=== PATIENT | female | born 1955 | race Caucasian/White ===

== ENCOUNTER 2018-01-11 01:01 | Inpatient (IN) | payer OTHER ==
--- NOTE | 2018-01-11 01:25 | PDOC ---
History of Present Illness <Kevin Muir - Last Filed: 01/11/18 03:51> - History of Present Illness Initial Comments: 62 year old female with PMH of HTN and recent cholecystectomy (3 weeks prior at [facility]) presenting with RUQ pain, nausea, and diaphoresis for the past 4 hours. States that she has been asymptomatic since her surgery and has not required pain medication. This pain today was sudden onset and she did not take any medications for it. Her dinner consisted of shrimp, crab, pasta, and pasta sauce. Denies recent EtOH or smoking. 01/11/18 02:23 <Aleksandr Browning - Last Filed: 01/11/18 04:13> - General Chief Complaint: Chest Pain Stated Complaint: CHEST PAIN Time Seen by Provider: 01/11/18 01:24 Past History <Kevin Muir - Last Filed: 01/11/18 03:51> - Past Medical History COPD: No HTN: Yes - Surgical History Abdominal Surgery: Yes (lt oopherectomy) Cholecystectomy: Yes (10/22/17) - Suicide/Smoking/Psychosocial Hx Smoking History: Current every day smoker Have you smoked in the past 12 months: Yes Number of Cigarettes Smoked Daily: 10 Information on smoking cessation initiated: No 'Breaking Loose' booklet given: 11/03/17 Hx Alcohol Use: No Drug/Substance Use Hx: No Substance Use Type: None <Aleksandr Browning - Last Filed: 01/11/18 04:13> - Past Medical History Allergies/Adverse Reactions: Allergies Allergy/AdvReac Type Severity Reaction Status Date / Time No Known Allergies Allergy Verified 11/03/17 18:24 Review of Systems - Review of Systems Constitutional: Yes: Diaphoresis. No: Chills, Fever HEENTM: No: Blurred Vision, Tearing Respiratory: No: Cough, Shortness of Breath Cardiac (ROS): No: Chest Pain, Edema, Irregular Heart Rate ABD/GI: Yes: Diarrhea, Nausea. No: Constipated, Vomiting : No: Burning, Dysuria, Discharge Musculoskeletal: No: Back Pain, Gout, Joint Pain Integumentary: No: Change in Color, Lesions, Lumps, Pallor Neurological: No: Headache, Numbness, Paresthesia Psychiatric: No: Anxiety, Depression Hematologic/Lymphatic: No: Anemia, Blood Clots, Easy Bleeding <NamUlimaryjane - Last Filed: 01/11/18 04:13> *Physical Exam - Vital Signs Last Vital Signs Temp Pulse Resp BP Pulse Ox 91 H 24 130/110 99 01/11/18 01:05 01/11/18 01:05 01/11/18 01:05 01/11/18 01:34 <Kevin Muir - Last Filed: 01/11/18 03:51> - Vital Signs Last Vital Signs Temp Pulse Resp BP Pulse Ox 91 H 24 130/110 01/11/18 01:05 01/11/18 01:05 01/11/18 01:05 - Physical Exam General Appearance: Yes: Nourished, Appropriately Dressed, Apparent Distress, Mild Distress HEENT: positive: EOMI, CINDY, Normal Voice Neck: positive: Trachea midline, Normal Thyroid, Supple. negative: Tender, Rigid Respiratory/Chest: positive: Lungs Clear, Normal Breath Sounds. negative: Chest Tender, Respiratory Distress, Accessory Muscle Use Cardiovascular: positive: Regular Rhythm, Regular Rate Gastrointestinal/Abdominal: positive: Normal Bowel Sounds, Tender (RUQ and eoigastric tenderness), Flat, Soft Musculoskeletal: positive: Normal Inspection. negative: CVA Tenderness Extremity: positive: Normal Capillary Refill, Normal Inspection, Normal Range of Motion, Pelvis Stable. negative: Tender Integumentary: positive: Normal Color, Dry, Warm Neurologic: positive: Fully Oriented, Alert, Normal Mood/Affect, Normal Response , Motor Strength 5/5 <Aleksandr Browning - Last Filed: 01/11/18 04:13> ED Treatment Course - LABORATORY CBC & Chemistry Diagram: 01/11/18 01:40 01/11/18 01:40 - ADDITIONAL ORDERS Additional order review: Laboratory Results 01/11/18 01/11/18 01/11/18 01:44 01:44 01:40 PT with INR 10.60 INR 0.94 Sodium 138 Potassium 3.9 Chloride 102 Carbon Dioxide 32 Anion Gap 4 L BUN 15 Creatinine 0.7 Creat Clearance w eGFR > 60 Random Glucose 116 H Calcium 9.5 Total Bilirubin 0.6 D AST 70 H ALT 313 H Alkaline Phosphatase 236 H Creatine Kinase 102 Troponin I < 0.02 Total Protein 7.1 Albumin 3.6 Total Amylase 31 Lipase 115 01/11/18 01:40 RBC 4.69 MCV 90.4 MCHC 33.2 RDW 13.0 MPV 10.0 Neutrophils % 68.7 Lymphocytes % 19.3 Monocytes % 8.4 Eosinophils % 3.1 Basophils % 0.5 - Medications Given in the ED: ED Medications Discontinued Medications Generic Name Dose Route Start Last Admin Trade Name Billie PRN Reason Stop Dose Admin Al Hydroxide/Mg Hydroxide 30 ml 01/11/18 01:46 01/11/18 03:03 Mylanta Oral Suspension - PO 01/11/18 01:47 30 ml ONCE ONE Administration Sodium Chloride 1,000 mls @ 1,000 mls/hr 01/11/18 01:37 01/11/18 01:50 Normal Saline - IV 01/11/18 02:36 1,000 mls/hr ASDIR STA Administration Famotidine 20 mg in 12 mls @ 144 mls/hr 01/11/18 01:46 01/11/18 03:03 Pepcid 20 Mg/12 Ml Push IVPUSH 01/11/18 01:50 144 mls/hr ONCE ONE Administration Morphine Sulfate 2 mg 01/11/18 01:37 01/11/18 01:50 Morphine Injection - IVPUSH 01/11/18 01:38 2 mg ONCE ONE Administration Morphine Sulfate 2 mg 01/11/18 03:07 01/11/18 03:20 Morphine Injection - IVPUSH 01/11/18 03:08 Not Given ONCE ONE Morphine Sulfate 4 mg 01/11/18 03:09 01/11/18 03:20 Morphine Injection - IVPUSH 01/11/18 03:10 4 mg ONCE ONE Administration <Kevin Muir - Last Filed: 01/11/18 03:51> - LABORATORY CBC & Chemistry Diagram: 01/11/18 01:40 01/11/18 01:40 <Aleksandr Browning - Last Filed: 01/11/18 04:13> Medical Decision Making - Medical Decision Making 01/11/18 03:51 EXAM: ABDOMEN US -LIMITED right upper quadrant and limited abdominal duplex HISTORY: Right upper quadrant pain status post cholecystectomy. COMPARISON: None. FINDINGS: Right upper quadrant ultrasound:The liver is enlarged and fatty, without mass or biliary duct dilation. The CBD is moderately dilated and [id number] millimeters in diameter. Right kidney measures 10.6centimeters in length and is unremarkable. The visualized aorta and IVC are normal. Pancreas is partially obscured, but appears normal. No free fluid. Abdominal duplex on the main portal vein demonstrates normal hepatopedal flow. IMPRESSION: Moderately dilated CBD could be due to postoperative stricture or nonvisualized distal CBD stone. Enlarged fatty liver. Read by: Nathan Hunter MD <Kevin Muir - Last Filed: 01/11/18 03:51> - Medical Decision Making 62 year old female presenting with RUQ abdominal pain 3 weeks after cholecystectomy concerning for post simon cholecystitis vs. retained CBD stone. Abd US demonstrating CBD dilation so likely the latter. Patient signed out to Dr. Mckay Wells and patient antibiosed with Zosyn, started on maintenance fluid, and made NPO. Eloyckmarty consult placed as patient will likely need ERCP. [facility] with pain controlled after a few doses of Motrin. 01/11/18 04:07 <Aleksandr Browning - Last Filed: 01/11/18 04:13> *DC/Admit/Observation/Transfer - Attestations Scribe Attestion: 01/11/18 03:52 Documentation prepared by Kevin Muir, acting as medical genetics director for Kavon Arredondo MD. <Kevin Muir - Last Filed: 01/11/18 03:51> - Discharge Dispostion Decision to Admit order: Yes <Aleksandr Browning - Last Filed: 01/11/18 04:13> Diagnosis at time of Disposition: Choledocholithiasis - Discharge Dispostion Disposition: HOME Condition at time of disposition: Stable
[2018-01-11] MEDS ORDERED: SODIUM CHLORIDE 1,000 ML IV STA (01:37)
[2018-01-11] MEDS ORDERED: morphine CARPU-JECT 2 MG/1 ML DISP.SYRIN IVPUSH ONE ×3 (01:37→20:45)
[2018-01-11] MEDS ORDERED: MAG HYDROX/AL HYDROX/SIMETH 30 ML UNIT-DOSE CUP PO ONE (01:46)
[2018-01-11] MEDS ORDERED: FAMOTIDINE IV 20 MG/12 ML VIAL IVPUSH ONE (01:46)
[2018-01-11 01:50] LABS: BASO % 0.5 % (0-2.0); EOS % 3.1 % (0-4.5); HEMATOCRIT 42.4 % (32.4-45.2); HEMOGLOBIN 14.1 GM/dL (10.7-15.3); LYMPH % 19.3 % (8-40); MCHC 33.2 g/dl (32.0-36.0); MEAN CELL VOLUME 90.4 fl (80-96); MONO % 8.4 % (3.8-10.2); NEUT % 68.7 % (42.8-82.8); PLATELET COUNT 307 K/MM3 (134-434); RBC 4.69 M/mm3 (3.60-5.2); WHITE BLOOD COUNT 13.2 K/mm3 (4.0-10.0)
[2018-01-11 02:09] LABS: INR 0.94 (0.82-1.09); PROTHROMBIN TIME (PATIENT) 10.6 SEC (9.7-13.0)
[2018-01-11 02:29] LABS: ALBUMIN 3.6 g/dl (3.4-5.0); ALK PHOS 236 U/L (45-117); AMYLASE 31 U/L (25-115); ANION GAP 4 (8-16); BILIRUBIN,TOTAL 0.6 mg/dL (0.2-1.0); BLOOD UREA NITROGEN 15 mg/dL (7-18); CALCIUM 9.5 mg/dL (8.5-10.1); CHLORIDE 102 mmol/L (98-107); CO2 32 mmol/L (21-32); CREATININE 0.7 mg/dL (0.55-1.02); GLUCOSE,RANDOM 116 mg/dL (74-106); LIPASE 115 U/L (73-393); POTASSIUM 3.9 mmol/L (3.5-5.1); SGOT/AST 70 U/L (15-37); SGPT/ALT 313 U/L (12-78); SODIUM 138 mmol/L (136-145); TOT PROT 7.1 g/dl (6.4-8.2)
[2018-01-11] MEDS ORDERED: morphine CARPU-JECT 4 MG/1 ML DISP.SYRIN IVPUSH ONE ×2 (03:09→04:40)
[2018-01-11] MEDS ORDERED: morphine SULFATE 4 MG/ML VIAL ONE (03:15)
--- NOTE | 2018-01-11 03:40 | PDOC ---
Attending Attestation - Resident Resident Name: NamAleksandr - ED Attending Attestation I have performed the following: I have examined & evaluated the patient, The case was reviewed & discussed with the resident, I agree w/resident's findings & plan, Exceptions are as noted - HPI HPI: 01/11/18 03:32 62 year old female with hx of HTN p/w RUQ pain since yesterday. The patient is s/p cholecystectomy 3 weeks ago at [place], reportedly unremarkable. Yesterday, developed severe RUQ pain with nausea. Denies vomiting. No fevers, chills. Stated that the pain is similar to RUQ pain to prior gallstone attacks. - Physicial Exam PE: 01/11/18 03:39 GENERAL: Awake, alert, and fully oriented, in no acute distress. HEAD: No signs of trauma EYES: PERRLA, EOMI, sclera anicteric, conjunctiva clear ENT: Auricles normal inspection, hearing grossly normal, nares patent NECK: Normal ROM, supple ABDOMEN: Soft, TTP RUQ, epigastric. EXTREMITIES: Normal range of motion, no edema. No clubbing or cyanosis. No cords, erythema, or tenderness - Medical Decision Making 01/11/18 03:40 Vital Signs Temp Pulse Resp BP Pulse Ox 91 H 24 130/110 99 01/11/18 01:05 01/11/18 01:05 01/11/18 01:05 01/11/18 01:34 Labs suggested that she has choledochlithiasis vs. cholangitis. Ultrasound pending. Labs, GI consult, and admit.
[2018-01-11] MEDS ORDERED: PIPERACILLIN/TAZOB 4.5 GM 4.5 GM in DEXTROSE 5%-WATER 100 ML IVPB ONE (04:02)
[2018-01-11] MEDS ORDERED: PIPERACILLIN/TAZOB 4.5 GM 4.5 GM/100 ML BAG IVPB ONE (04:34)
[2018-01-11] MEDS: SODIUM CHLORIDE 1,000 ML IV SCH ×2 (04:54→12:57)
[2018-01-11] MEDS: morphine SULFATE 4 MG/ML VIAL IM PRN ×3 (07:45→20:04)
--- NOTE | 2018-01-11 09:38 | CON.GI ---
Consult Consult Specialty:: GI: Dr. Lynch for Dr. Solis Referred by:: Dr. Mccabe Reason for Consultation:: Abdominal pain, abnormal liver chemistries - History of Present Illness Chief Complaint: Abdominal pain History of Present Illness: 62F admitted for evaluation of progressive epigastric pain and nausea. This started last night and worsened in intensity prompting her ER visit. She was noted to have elevated transaminases / ALP and a CBD of 1.5cm. She denies fevers/chills. She explains that she underwent ERCP 11/02 at [facility] secondary to a similar episode. She explains that they "found gravel" and while they advised having a cholecystectomy the next day, she opted to wait until earlier this month to have it performed. 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 [employer] Place of : [facility] History of Recent Travel: No Home Medications - Allergies Allergies/Adverse Reactions: Allergies Allergy/AdvReac Type Severity Reaction Status Date / Time No Known Allergies Allergy Verified 11/03/17 18:24 - Home Medications Home Medications: Ambulatory Orders Metoprolol Tartrate 25 mg PO DAILY 01/11/18 Olmesartan/Hydrochlorothiazide [Benicar Hct 20-12.5MG Tab] 1 tab PO DAILY Family Disease History - Family Disease History Family Disease History: Other: Father ( 64: [place]), Mother (: 71: ESRD on HD), Brother (2, Healthy), Sister (3, healthy), Son (2, healthy) Review of Systems - Review of Systems Constitutional: denies: Lethargy Cardiovascular: denies: Chest Pain Respiratory: denies: Cough, SOB Gastrointestinal: reports: Nausea. denies: Diarrhea, Dysphagia, Vomiting, Vomiting Blood Physical Exam-GI Vital Signs: Vital Signs Temperature 99.3 F 01/11/18 06:30 Pulse Rate 70 01/11/18 06:30 Respiratory Rate 20 01/11/18 06:30 Blood Pressure 131/72 01/11/18 06:30 O2 Sat by Pulse Oximetry (%) 99 01/11/18 05:52 Constitutional: Yes: Calm Eyes: No: Sclera Icterus Cardiovascular: Yes: Regular Rate and Rhythm. No: Murmur Respiratory: Yes: CTA Bilaterally Gastrointestinal Inspection: Yes: Scars (healed trochar scar in upper abdomen and periumbilical scar). No: Distention ...Auscultate: Yes: Normoactive Bowel Sounds ...Palpate: Yes: Tenderness (TTP epigastrium) ...Percussion: No: Tympanitic Edema: No (No LE edema) Neurological: Yes: Alert, Oriented Labs: CBC, BMP 01/11/18 01:40 01/11/18 01:40 INR, PTT INR 0.94 (0.82-1.09) 01/11/18 01:44 Hepatic Panel Total Bilirubin 0.6 mg/dL (0.2-1.0) D 01/11/18 01:40 AST 70 U/L (15-37) H 01/11/18 01:40 ALT 313 U/L (12-78) H 01/11/18 01:40 Alkaline Phosphatase 236 U/L (45-117) H 01/11/18 01:40 Albumin 3.6 g/dl (3.4-5.0) 01/11/18 01:40 Imaging - Results Ultrasound: Report Reviewed Problem List - Problems (1) Abnormal liver enzymes Assessment/Plan: Given clinical picture, retained CBD stone would have to be considered higher in the Ddx. I explained this to Ms. Magana. While MRCP would be a good startind test, Ms. Magana explains that they tried that in 11/02 at [facility] prior to her surgery and gave her sedation however she lasted only 20 seconds in the machine due to panic attack. I discussed ERCP, which by description, she has performed previously, for diagnostic and therapeutic purposes. We discussed potential risks of the procedure like but not limited to bleeding, perforation requiring surgery to repair, infection, sedation medication effects, pancreatitis (occurring 5-10% of the cases) all of which could be potentially life threatening. She has agreed to the procedure. For now: Ordered CBC, CMP and type and screen for this AM NPO except meds IV hydration per PMD Timing of procedure to be determined by lab work and clinical status Code(s): R74.8 - ABNORMAL LEVELS OF OTHER SERUM ENZYMES
[2018-01-11] MEDS ORDERED: PIPERACILLIN/TAZOB 3.375 GM 3.375 GM in DEXTROSE 5%-WATER - 50 ML IVPB ONE (10:00)
--- NOTE | 2018-01-11 10:11 | EKG ---
Test Reason : Blood Pressure : / mmHG Vent. Rate : 091 BPM Atrial Rate : 091 BPM P-R Int : 128 ms QRS Dur : 092 ms QT Int : 382 ms P-R-T Axes : 060 054 046 degrees QTc Int : 469 ms NORMAL SINUS RHYTHM NORMAL ECG WHEN COMPARED WITH ECG OF 03-NOV-2017 18:08, NO SIGNIFICANT CHANGE WAS FOUND Confirmed by RAJENDRA POLLACK MD ([id number]) on 01/11/2018 10:11:28 AM Referred By: Confirmed By:RAJENDRA POLLACK MD
[2018-01-11] MEDS ORDERED: DEXTROSE 5%-WATER - 50 ML IVPB ONE ×2 (10:21→17:16)
[2018-01-11] MEDS ORDERED: PIPERACILLIN/TAZOBACTAM 3.375 GM VIAL IVPB ONE ×2 (10:21→17:16)
[2018-01-11] MEDS: PIPERACILLIN/TAZOB 3.375 GM 3.375 GM in DEXTROSE 5%-WATER - 50 ML IVPB SCH ×2 (10:26→17:18)
[2018-01-11] MEDS: METOPROLOL TARTRATE 25 MG TABLET (FP) PO SCH ×2 (10:26→21:22)
[2018-01-11 10:29] LABS: BASO % 0.5 % (0-2.0); EOS % 1.8 % (0-4.5); HEMATOCRIT 41.5 % (32.4-45.2); HEMOGLOBIN 13.5 GM/dL (10.7-15.3); LYMPH % 17.2 % (8-40); MCH 29.9 pg (25.7-33.7); MCHC 32.6 g/dl (32.0-36.0); MEAN CELL VOLUME 91.8 fl (80-96); MEAN PLT VOLUME 9.7 fl (7.5-11.1); MONO % 9.3 % (3.8-10.2); NEUT % 71.2 % (42.8-82.8); PLATELET COUNT 298 K/MM3 (134-434); RBC 4.52 M/mm3 (3.60-5.2); RDW 13.2 % (11.6-15.6); WHITE BLOOD COUNT 14.9 K/mm3 (4.0-10.0)
[2018-01-11 10:57] LABS: ALBUMIN 3.3 g/dl (3.4-5.0); ANION GAP 6 (8-16); BLOOD UREA NITROGEN 13 mg/dL (7-18); CALCIUM 8.8 mg/dL (8.5-10.1); CHLORIDE 104 mmol/L (98-107); CO2 32 mmol/L (21-32); GLUCOSE,RANDOM 91 mg/dL (74-106); POTASSIUM 4.3 mmol/L (3.5-5.1); SODIUM 142 mmol/L (136-145)
[2018-01-11 11:01] LABS: ALK PHOS 194 U/L (45-117); BILIRUBIN,TOTAL 0.7 mg/dL (0.2-1.0); CREATININE 0.8 mg/dL (0.55-1.02); SGOT/AST 51 U/L (15-37); SGPT/ALT 257 U/L (12-78); TOT PROT 6.7 g/dl (6.4-8.2)
--- NOTE | 2018-01-11 11:34 | HP ---
Admitting History and Physical - Primary Care Physician PCP: Mckay Mccabe - Admission Chief Complaint: stomach pain History of Present Illness: Pt is s/p cholecystectomy 3 weeks ago at [facility], developed epigastric pain yesterday, associated with nausea, not better with Nexium and Rolaids, came to ER last night as pain got worse. IN ER she was noticed to have elevated LFT, RUQ /epigastric pain. 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 [employer] History of Recent Travel: No Home Medications - Allergies Allergies/Adverse Reactions: Allergies Allergy/AdvReac Type Severity Reaction Status Date / Time No Known Allergies Allergy Verified 11/03/17 18:24 - Home Medications Home Medications: Ambulatory Orders Metoprolol Tartrate 25 mg PO DAILY 01/11/18 Olmesartan/Hydrochlorothiazide [Benicar Hct 20-12.5MG Tab] 1 tab PO DAILY Family Disease History - Family Disease History Family Disease History: Other: Father ( 64: [place]), Mother (: 71: ESRD on HD), Brother (2, Healthy), Sister (3, healthy), Son (2, healthy) Review of Systems - Review of Systems Constitutional: denies: Chills, Fever Eyes: denies: Blurred Vision, Recent Change in Vision HENT: denies: Difficult Swallowing, Ear Discharge, Ear Pain, Nasal Congestion, Throat Pain Neck: denies: Stiffness, Tenderness Cardiovascular: reports: Shortness of Breath. denies: Chest Pain, Edema, Palpitations Respiratory: denies: Cough, SOB, Wheezing Gastrointestinal: reports: Abdominal Pain. denies: Diarrhea, Nausea, Vomiting Genitourinary: denies: Burning, Discharge Musculoskeletal: denies: Back Pain, Extremity Pain Integumentary: denies: Bruising, Eczema, Rash Neurological: denies: Change in LOC, Change in Speech, Confusion, Numbness, Weakness Endocrine: denies: Excessive Sweating, Intolerance to Cold Hematology/Lymphatic: denies: Easily Bruised, Excessive Bleeding Psychiatric: denies: Anxiety, Depression Physical Examination Vital Signs: Vital Signs Temperature 97 F L 01/11/18 10:00 Pulse Rate 76 01/11/18 10:00 Respiratory Rate 20 01/11/18 10:00 Blood Pressure 138/58 01/11/18 10:00 O2 Sat by Pulse Oximetry (%) 99 01/11/18 05:52 Constitutional: Yes: No Distress, Calm Eyes: Yes: Conjunctiva Clear, EOM Intact HENT: Yes: Normocephalic. No: Rhinnorhea Neck: Yes: Trachea Midline. No: Lymphadenopathy Cardiovascular: Yes: Regular Rate and Rhythm, S1, S2 Respiratory: Yes: Regular, CTA Bilaterally. No: Rales Gastrointestinal: Yes: Normal Bowel Sounds, Soft, Tenderness, Epigastrium. No: Tenderness, Rebound ...Rectal Exam: Yes: Deferred Renal/: No: CVA Tenderness - Left, CVA Tenderness - Right Breast(s): Yes: Other (deferred) Musculoskeletal: No: Back Pain, Joint Swelling Edema: No Neurological: Yes: Alert, Oriented, Other (symmetric motor and sensory examination in UE/ LE/ face.) Psychiatric: Yes: Alert, Oriented Labs: CBC, BMP 01/11/18 10:00 01/11/18 10:00 Imaging - Results Chest X-ray: Report Reviewed Ultrasound: Report Reviewed Problem List - Problems (1) Choledocholithiasis Code(s): K80.50 - CALCULUS OF BILE DUCT W/O CHOLANGITIS OR CHOLECYST W/O OBST (2) Abnormal liver enzymes Code(s): R74.8 - ABNORMAL LEVELS OF OTHER SERUM ENZYMES (3) HTN (hypertension) Code(s): I10 - ESSENTIAL (PRIMARY) HYPERTENSION (4) Hx laparoscopic cholecystectomy Code(s): Z90.49 - ACQUIRED ABSENCE OF OTHER SPECIFIED PARTS OF DIGESTIVE TRACT Assessment/Plan NPO, IVF, IV abtx Nicotine patch GI consult, case was d/w Dr. Avi Bowens AM labs, case was d/w pt's nurse
[2018-01-11] MEDS: NICOTINE 14 MG/24 HOURS TOPICAL PATCH TD SCH (13:03)
[2018-01-11 17:37] LABS: BASO % 0.8 % (0-2.0); HEMATOCRIT 39.6 % (32.4-45.2); HEMOGLOBIN 13.2 GM/dL (10.7-15.3); LYMPH % 17.2 % (8-40); MCH 30.2 pg (25.7-33.7); MCHC 33.4 g/dl (32.0-36.0); MEAN CELL VOLUME 90.4 fl (80-96); MEAN PLT VOLUME 9.6 fl (7.5-11.1); PLATELET COUNT 275 K/MM3 (134-434); RBC 4.39 M/mm3 (3.60-5.2); RDW 12.8 % (11.6-15.6)
[2018-01-12] MEDS ORDERED: PIPERACILLIN/TAZOBACTAM 3.375 GM VIAL IVPB ONE ×3 (01:14→17:59)
[2018-01-12] MEDS ORDERED: DEXTROSE 5%-WATER - 50 ML IVPB ONE ×3 (01:15→17:59)
[2018-01-12] MEDS: morphine SULFATE 4 MG/ML VIAL IM PRN ×2 (01:27→06:47)
[2018-01-12] MEDS: SODIUM CHLORIDE 1,000 ML IV SCH ×3 (01:30→11:45)
[2018-01-12] MEDS: PIPERACILLIN/TAZOB 3.375 GM 3.375 GM in DEXTROSE 5%-WATER - 50 ML IVPB SCH ×3 (01:30→18:13)
[2018-01-12 07:45] LABS: HEMATOCRIT 38.8 % (32.4-45.2); MCH 30.4 pg (25.7-33.7); MCHC 33.4 g/dl (32.0-36.0); MEAN CELL VOLUME 91.1 fl (80-96); MEAN PLT VOLUME 10.1 fl (7.5-11.1); PLATELET COUNT 263 K/MM3 (134-434); RBC 4.26 M/mm3 (3.60-5.2); RDW 13.2 % (11.6-15.6); WHITE BLOOD COUNT 12.6 K/mm3 (4.0-10.0)
[2018-01-12 08:01] LABS: ALBUMIN 3.1 g/dl (3.4-5.0); ANION GAP 6 (8-16); BLOOD UREA NITROGEN 12 mg/dL (7-18); CALCIUM 8.2 mg/dL (8.5-10.1); CHLORIDE 107 mmol/L (98-107); CO2 29 mmol/L (21-32); GLUCOSE,RANDOM 99 mg/dL (74-106); SODIUM 142 mmol/L (136-145)
[2018-01-12 08:05] LABS: ALK PHOS 168 U/L (45-117); BILIRUBIN,TOTAL 0.8 mg/dL (0.2-1.0); CREATININE 0.8 mg/dL (0.55-1.02); SGOT/AST 33 U/L (15-37); SGPT/ALT 179 U/L (12-78); TOT PROT 6.2 g/dl (6.4-8.2)
[2018-01-12] MEDS ORDERED: PT OWN MED DRAWER 7, Y5N ONE (08:52)
[2018-01-12] MEDS: METOPROLOL TARTRATE 25 MG TABLET (FP) PO SCH ×2 (09:00→21:35)
[2018-01-12] MEDS: NICOTINE 14 MG/24 HOURS TOPICAL PATCH TD SCH (09:00)
[2018-01-12] MEDS ORDERED: GLYCOPYRROLATE 0.2 MG/1 ML VIAL ONE ×3 (09:13)
[2018-01-12] MEDS ORDERED: ROCURONIUM BROMIDE 50 MG/5 ML VIAL ONE (09:13)
[2018-01-12] MEDS ORDERED: PROPOFOL 20 ML ONE (09:13)
[2018-01-12] MEDS ORDERED: LIDOCAINE HCL/PF 2% SDV 5ML VIAL ONE (09:14)
[2018-01-12] MEDS ORDERED: NEOSTIGMINE METHYLSULFATE 0.5 MG/ML - 10 ML MDV ONE (09:14)
[2018-01-12] MEDS ORDERED: SUCCINYLCHOLINE CHLORIDE 200 MG/10 ML VIAL ONE (09:14)
[2018-01-12] MEDS ORDERED: PROMETHAZINE HCL 25 MG/1 ML VIAL IVPUSH PRN (09:24)
[2018-01-12] MEDS ORDERED: ONDANSETRON 4 MG/2 ML VIAL IVPUSH PRN (09:24)
[2018-01-12] MEDS ORDERED: LACTATED RINGERS SOLUTION 1,000 ML IV SCH (09:30)
[2018-01-12] MEDS ORDERED: ETOMIDATE 20 MG/10 ML AMPUL IVPUSH ONE (09:40)
[2018-01-12] MEDS ORDERED: ONDANSETRON 4 MG/2 ML VIAL ONE (09:40)
[2018-01-12] MEDS ORDERED: DEXAMETHASONE SOD PHOSPHATE 10 MG/1 ML VIAL ONE (09:40)
[2018-01-12] MEDS ORDERED: INDOMETHACIN 50 MG RECTAL SUPPOSITORY PR ONE (09:55)
[2018-01-12] MEDS ORDERED: GLUCAGON 1 MG KIT ONE (10:01)
[2018-01-12] MEDS ORDERED: morphine SULFATE 4 MG/ML VIAL IM PRN (10:55)
--- NOTE | 2018-01-12 12:35 | PN ---
Progress Note, Physician History of Present Illness: Pt w/o SOB, CP, palpitations, abd pain, N, V. Pt is s/p ERCP, eating now. - Current Medication List Current Medications: Active Medications Sodium Chloride (Normal Saline -) 1,000 mls @ 125 mls/hr IV ASDIR MAYURI Last Admin: 01/12/18 11:45 Dose: 0 mls Piperacillin Sod/Tazobactam (Sod 3.375 gm/ Dextrose) 50 mls @ 100 mls/hr IVPB Q8H-IV MAYURI; Protocol Metoprolol Tartrate (Lopressor -) 25 mg PO BID MAYURI Morphine Sulfate (Morphine Sulfate) 4 mg IM Q4H PRN PRN Reason: PAIN LEVEL 4 - 6 Nicotine (Nicoderm Patch -) 14 mg TD DAILY MAYURI - Objective Vital Signs: Vital Signs Temperature 98.5 F 01/12/18 11:45 Pulse Rate 65 01/12/18 11:45 Respiratory Rate 18 01/12/18 11:45 Blood Pressure 130/63 01/12/18 11:45 O2 Sat by Pulse Oximetry (%) 96 01/12/18 11:45 Constitutional: Yes: No Distress, Calm Cardiovascular: Yes: Regular Rate and Rhythm, S1, S2 Respiratory: Yes: Regular, CTA Bilaterally. No: Rales Gastrointestinal: Yes: Normal Bowel Sounds, Soft. No: Tenderness Edema: No Neurological: Yes: Alert, Oriented Labs: CBC, BMP 01/12/18 07:00 01/12/18 07:00 INR, PTT INR 0.94 (0.82-1.09) 01/11/18 01:44 Problem List - Problems (1) Choledocholithiasis Code(s): K80.50 - CALCULUS OF BILE DUCT W/O CHOLANGITIS OR CHOLECYST W/O OBST (2) Abnormal liver enzymes Code(s): R74.8 - ABNORMAL LEVELS OF OTHER SERUM ENZYMES (3) HTN (hypertension) Code(s): I10 - ESSENTIAL (PRIMARY) HYPERTENSION (4) Hx laparoscopic cholecystectomy Code(s): Z90.49 - ACQUIRED ABSENCE OF OTHER SPECIFIED PARTS OF DIGESTIVE TRACT Assessment/Plan s/p ERCP IVF- to be DC'ed if tolerates PO IV abtx Nicotine patch GI consult and f/u appreciated AM labs, Case was d/w pt's nurse
[2018-01-13] MEDS ORDERED: PIPERACILLIN/TAZOBACTAM 3.375 GM VIAL IVPB ONE ×2 (00:59→10:10)
[2018-01-13] MEDS ORDERED: DEXTROSE 5%-WATER - 50 ML IVPB ONE ×2 (01:00→10:10)
[2018-01-13] MEDS: PIPERACILLIN/TAZOB 3.375 GM 3.375 GM in DEXTROSE 5%-WATER - 50 ML IVPB SCH ×3 (01:43→17:50)
[2018-01-13] MEDS: SODIUM CHLORIDE 1,000 ML IV SCH ×2 (01:45→12:07)
[2018-01-13 08:30] LABS: HEMATOCRIT 38.7 % (32.4-45.2); HEMOGLOBIN 12.7 GM/dL (10.7-15.3); MCH 30.1 pg (25.7-33.7); MCHC 32.7 g/dl (32.0-36.0); MEAN PLT VOLUME 10.3 fl (7.5-11.1); PLATELET COUNT 275 K/MM3 (134-434); RBC 4.21 M/mm3 (3.60-5.2); RDW 13.2 % (11.6-15.6); WHITE BLOOD COUNT 15.7 K/mm3 (4.0-10.0)
[2018-01-13 08:48] LABS: ANION GAP 3 (8-16); CALCIUM 8.5 mg/dL (8.5-10.1); CHLORIDE 108 mmol/L (98-107); CO2 30 mmol/L (21-32); POTASSIUM 4.5 mmol/L (3.5-5.1); SODIUM 141 mmol/L (136-145)
[2018-01-13 08:58] LABS: ALBUMIN 2.8 g/dl (3.4-5.0); ALK PHOS 163 U/L (45-117); BILIRUBIN,TOTAL 0.6 mg/dL (0.2-1.0); BLOOD UREA NITROGEN 14 mg/dL (7-18); CREATININE 0.7 mg/dL (0.55-1.02); GLUCOSE,RANDOM 124 mg/dL (74-106); SGOT/AST 41 U/L (15-37); SGPT/ALT 153 U/L (12-78); TOT PROT 5.8 g/dl (6.4-8.2)
--- NOTE | 2018-01-13 09:15 | PN ---
Progress Note (short form) - Note Progress Note: Anesthesiology Post-op 62 y.o. woman POD#1 s/p ERCP with sphincterotomy under GA. Pt. is awake and alert in bed. She c/o some gas but otherwise has no complaints. Denies sore throat or n/v. VSS. 62 y.o. woman with stable post-operative course s/p ERCP. Continue post-op management as per primary team.
--- NOTE | 2018-01-13 09:37 | PN ---
Progress Note, Physician History of Present Illness: Pt w/o SOB, CP, palpitations, abd pain, N, V. Pt is s/p ERCP, eating now. - Current Medication List Current Medications: Active Medications Sodium Chloride (Normal Saline -) 1,000 mls @ 125 mls/hr IV ASDIR MAYURI Last Admin: 01/13/18 01:45 Dose: 125 mls/hr Piperacillin Sod/Tazobactam (Sod 3.375 gm/ Dextrose) 50 mls @ 100 mls/hr IVPB Q8H-IV MAYURI; Protocol Last Admin: 01/13/18 01:43 Dose: 100 mls/hr Metoprolol Tartrate (Lopressor -) 25 mg PO BID MAYURI Last Admin: 01/12/18 21:35 Dose: 25 mg Morphine Sulfate (Morphine Sulfate) 4 mg IM Q4H PRN PRN Reason: PAIN LEVEL 4 - 6 Nicotine (Nicoderm Patch -) 14 mg TD DAILY MAYURI - Objective Vital Signs: Vital Signs Temperature 97.6 F 01/13/18 06:00 Pulse Rate 61 01/13/18 06:00 Respiratory Rate 20 01/13/18 06:00 Blood Pressure 134/66 01/13/18 06:00 O2 Sat by Pulse Oximetry (%) 96 01/12/18 21:00 Constitutional: Yes: No Distress, Calm Cardiovascular: Yes: Regular Rate and Rhythm, S1, S2 Respiratory: Yes: Regular, CTA Bilaterally. No: Rales Gastrointestinal: Yes: Normal Bowel Sounds, Soft, Tenderness, Epigastrium ( minimal) Edema: No Neurological: Yes: Alert, Oriented Labs: CBC, BMP 01/13/18 06:43 01/13/18 06:43 INR, PTT INR 0.94 (0.82-1.09) 01/11/18 01:44 Problem List - Problems (1) Choledocholithiasis Code(s): K80.50 - CALCULUS OF BILE DUCT W/O CHOLANGITIS OR CHOLECYST W/O OBST (2) Abnormal liver enzymes Code(s): R74.8 - ABNORMAL LEVELS OF OTHER SERUM ENZYMES (3) HTN (hypertension) Code(s): I10 - ESSENTIAL (PRIMARY) HYPERTENSION (4) Hx laparoscopic cholecystectomy Code(s): Z90.49 - ACQUIRED ABSENCE OF OTHER SPECIFIED PARTS OF DIGESTIVE TRACT (5) Leukocytosis Assessment/Plan: to f/u with GI. Pt on abtx Code(s): D72.829 - ELEVATED WHITE BLOOD CELL COUNT, UNSPECIFIED Assessment/Plan s/p ERCP; to f/u report. IVF- to be DC'ed if tolerates PO IV abtx Nicotine patch GI consult and f/u appreciated; to f/u regarding WBC trending up. Findings were reviewed with pt; all questions were answered. AM labs, Case was d/w pt's nurse
[2018-01-13] MEDS ORDERED: NICOTINE 14 MG/24 HOURS TOPICAL PATCH TD SCH (10:00)
[2018-01-13] MEDS: METOPROLOL TARTRATE 25 MG TABLET (FP) PO SCH (10:13)
[2018-01-13 12:18] LABS: AMYLASE 28 U/L (25-115); LIPASE 112 U/L (73-393)
[2018-01-13 13:30] VITALS: BMI 35.6
[2018-01-13 15:32] VITALS: BP 155/84; PULSE 65; TEMP 98.6
--- NOTE | 2018-01-13 16:12 | PN ---
GI Progress Note Subjective: GI Note: Pain and fever free. Tolerating solids. Slightly elevated WBC reflects the sphincterotomy and sweeping of the duct. Wants to go home. LFTs are normalizing. I discussed the case with Dr Mccabe and informed him that Colette probably passed a stone on her own but now hs a sphincerotomy should any residual gravel need to pass. We have mutually agreed that she can be discharged. I have advised Miralax TID to relieve her narcotic induced constipation - Objective Vital Signs: Vital Signs Temperature 98.6 F 01/13/18 14:15 Pulse Rate 65 01/13/18 14:15 Respiratory Rate 20 01/13/18 14:15 Blood Pressure 155/84 01/13/18 14:15 O2 Sat by Pulse Oximetry (%) 96 01/13/18 09:00 Laboratory Tests 01/11/18 01/11/18 01/13/18 01:40 10:00 06:43 Total Bilirubin 0.6 D 0.6 D AST 70 H 51 H 41 H ALT 313 H 257 H 153 H Alkaline Phosphatase 236 H 194 H 163 H Total Amylase 28 Lipase 112 Constitutional: Calm ...Auscultate: Yes: Normoactive Bowel Sounds ...Palpate: Yes: Soft, Other (nontender) Labs: CBC, BMP 01/13/18 06:43 01/13/18 06:43 INR, PTT INR 0.94 (0.82-1.09) 01/11/18 01:44 Problem List - Problems (1) Choledocholithiasis Assessment/Plan: Resolved choledocholithiasis. Can discharge on Levaquin. Instructed to take Miralax TID until her bowels move. Code(s): K80.50 - CALCULUS OF BILE DUCT W/O CHOLANGITIS OR CHOLECYST W/O OBST
--- NOTE | 2018-01-13 17:03 | PN ---
Progress Note (short form) - Note Progress Note: Pt's case was reviewed with Dr. Solis, including ERCP findings; elevations in WBC is considered normal reaction secondary to ERCP; pt can be DC'ed home on Levaquin and Miralax (TID until BM). Pt to come to see me in f/u next week. Above recommendations were reviewed with pt.; all questions were answered. Time spent for coordinating pt's discharge: over 50 minutes. Problem List - Problems (1) Choledocholithiasis Code(s): K80.50 - CALCULUS OF BILE DUCT W/O CHOLANGITIS OR CHOLECYST W/O OBST (2) Abnormal liver enzymes Code(s): R74.8 - ABNORMAL LEVELS OF OTHER SERUM ENZYMES (3) HTN (hypertension) Code(s): I10 - ESSENTIAL (PRIMARY) HYPERTENSION (4) Hx laparoscopic cholecystectomy Code(s): Z90.49 - ACQUIRED ABSENCE OF OTHER SPECIFIED PARTS OF DIGESTIVE TRACT (5) Leukocytosis Code(s): D72.829 - ELEVATED WHITE BLOOD CELL COUNT, UNSPECIFIED
== END 2018-01-13 18:44 | disposition home or self-care (01) | DRG 446 ==
LOC: JER 01:01 → JERBED 04:13 → J8W 06:41
PROVIDERS: ADMIT Specialist; ATTEND Specialist
PROC: BF10YZZ Fluoroscopy of Bile Ducts using Other Contrast (ICD-10-PCS; 2018-01-12)
PROC: 0F798ZZ Dilation of Common Bile Duct, Via Natural or Artificial Opening Endoscopic (ICD-10-PCS; principal; 2018-01-12 09:30)
DX: K80.50 Calculus of bile duct without cholangitis or cholecystitis without obstruction (principal); R74.8 Abnormal levels of other serum enzymes; I10 Essential (primary) hypertension; F17.210 Nicotine dependence, cigarettes, uncomplicated; D72.829 Elevated white blood cell count, unspecified; R10.11 Right upper quadrant pain
CPT/HCPCS: 36415; 71045-TC-FY; 76000-TC-FY; 76705-TC; 80053; 82150; 82550; 83690; 84484; 85025; 85027; 85610; 86850; 86900; 86901; 93005; 93010; 94760; 99283-25; J1100; J7030

== ENCOUNTER 2018-03-06 18:07 | Emergency (ER) | payer OTHER ==
[2018-03-06 19:24] VITALS: BP 142/98; PULSE 92; TEMP 98.6; BMI 26.5
--- NOTE | 2018-03-06 19:34 | PDOC ---
Rapid Medical Evaluation Chief Complaint: Pain, Acute Time Seen by Provider: 03/06/18 19:20 Medical Evaluation: Allergies Allergy/AdvReac Type Severity Reaction Status Date / Time No Known Allergies Allergy Verified 02/26/18 13:22 03/06/18 19:20 I have performed a [id number] evaluation of this patient. The patient presents with a chief complaint of: epigastric pain. December 19, 2017: lap simon /same day surgery @ [facility] by Dr. Kalina Basurto January 15: Dr. Hui did ERCP/Pt states they did not find anything. ?CBD stone Pertinent Physical exam findings: epigastric pain denies n/v I have ordered the following: cbc/cmp/lipase, US limited The patient will proceed to the ED for further evaluation. Discharge Disposition - Discharge Dispostion Last Admission D/C Date: 03/02/18 - Referrals Referrals: Mckya Mccabe MD [Primary Care Provider] - - Patient Instructions - Post Discharge Activity
[2018-03-06] MEDS ORDERED: SODIUM CHLORIDE 500 ML IV STA (19:41)
--- NOTE | 2018-03-06 19:41 | PDOC ---
History of Present Illness - General History Source: Patient Exam Limitations: No Limitations - History of Present Illness Initial Comments: 03/06/18 20:44 The patient is a 63 year old female, with a significant past medical history of HTN, who presents to the emergency department with, 1 week of worsening mid- epigastric pain. As per patient, she has an ERCP with stent surgery a week ago and stayed in the hospital for 4 days. She describes her pain as a worsening, intermittent, positional, nonradiating pain lasting 15-20 seconds. She called her GI doctor, Dr. Becerra service who advised her to report to the ED for further evaluation. She denies recent fevers, chills, headache or dizziness. She denies recent nausea, vomit, diarrhea or constipation. She denies recent dysuria, frequency, urgency or hematuria. She denies recent chest pain or shortness of breath. Allergies: NKA Past surgical history: Cholecystectomy. Social history: Smoker. Denies EtOH use and recreational drug use. Primary Care Physician: Dr. Mccabe Educational Program Director: Dr. Byrd GI: Dr. Solis <Kvein Muir - Last Filed: 03/06/18 22:39> <Chavez Reyes - Last Filed: 03/06/18 22:55> - General Chief Complaint: Pain, Acute Stated Complaint: PCP SENT Time Seen by Provider: 03/06/18 19:20 Past History <Kevin Muir - Last Filed: 03/06/18 22:39> - Past Medical History COPD: No DVT: No Dementia: No Diabetes: No GI Disorders: Yes (gall stones in the past) HTN: Yes Hypercholesterolemia: No - Surgical History Abdominal Surgery: Yes (lt oopherectomy) Cholecystectomy: Yes (10/22/17) - Immunization History Immunization Up to Date: Yes - Suicide/Smoking/Psychosocial Hx Smoking History: Current every day smoker Have you smoked in the past 12 months: Yes Number of Cigarettes Smoked Daily: 10 Information on smoking cessation initiated: Yes 'Breaking Loose' booklet given: 01/11/18 Hx Alcohol Use: Yes (social) Drug/Substance Use Hx: No Substance Use Type: None Hx Substance Use Treatment: No <Chavez Reyes - Last Filed: 03/06/18 22:55> - Past Medical History Allergies/Adverse Reactions: Allergies Allergy/AdvReac Type Severity Reaction Status Date / Time No Known Allergies Allergy Verified 02/26/18 13:22 Home Medications: Ambulatory Orders Metoprolol Tartrate 25 mg PO DAILY 01/11/18 Olmesartan/Hydrochlorothiazide [Benicar Hct 20-12.5MG Tab -] 1 tab PO DAILY Acetaminophen [Tylenol .Regular Strength -] 650 mg PO Q4H PRN tablet 03/02/18 Levofloxacin [Levaquin] 500 mg PO DAILY #7 tablet MDD 7 03/02/18 Nicotine Patch [Nicoderm Patch -] 21 mg TD DAILY #30 patch MDD 1 03/02/18 Phenobarb/Hyoscy/Atropine/Scop [ Tablet] 16.2 mg PO TID #20 tablet 03/06 Review of Systems - Review of Systems Able to Perform ROS?: Yes Comments:: 03/06/18 20:44 CONSTITUTIONAL: No fever, no chills, no fatigue EYES: No visual changes ENT: No ear pain, no sore throat CARDIOVASCULAR: No chest pain, no palpitations RESPIRATORY: No cough, no SOB GI: No abdominal pain, no nausea, no vomiting, no constipation, no diarrhea +GENITOURINARY: Midepigastric pain. No dysuria, no frequency, no hematuria MUSKULOSKELETAL: No back pain, no joint pain, no myalgias SKIN: No rash NEURO: No headache All Other Systems: Reviewed and Negative <Kevin Muir - Last Filed: 03/06/18 22:39> *Physical Exam - Vital Signs Last Vital Signs Temp Pulse Resp BP Pulse Ox 98.6 F 92 H 20 142/98 98 03/06/18 19:14 03/06/18 19:14 03/06/18 19:14 03/06/18 19:14 03/06/18 19:14 - Physical Exam Comments: 03/06/18 21:09 +CONSTITUTIONAL: Morbidly obese. Well-appearing; in no apparent distress HEAD: Normocephalic; atraumatic EYES: PERRL; EOM intact ENMT: External appears normal; normal oropharynx NECK: Supple; non-tender; no cervical lymphadenopathy CARD: Normal S1, S2; no murmurs, rubs, or gallops RESP: Normal chest excursion with respiration; breath sounds clear and equal bilaterally; no wheezes, rhonchi, or rales +ABD: Mild epigastric discomfort. Soft, non-distended; no palpable organomegaly , no palpable hernias EXT: Normal ROM in all four extremities; non-tender to palpation; distal pulses intact SKIN: Warm, dry, no rash NEURO: No focal neurological deficiencies. <Kevin Muir - Last Filed: 03/06/18 22:39> - Vital Signs Last Vital Signs Temp Pulse Resp BP Pulse Ox 98.6 F 92 H 20 142/98 98 03/06/18 19:14 03/06/18 19:14 03/06/18 19:14 03/06/18 19:14 03/06/18 19:14 <Chavez Reyes - Last Filed: 03/06/18 22:55> ED Treatment Course - LABORATORY CBC & Chemistry Diagram: 03/06/18 19:10 03/06/18 19:10 - ADDITIONAL ORDERS Additional order review: Laboratory Results 03/06/18 03/06/18 20:13 19:10 Sodium 141 Potassium 3.3 L Chloride 105 Carbon Dioxide 30 Anion Gap 6 L BUN 8 Creatinine 0.8 Creat Clearance w eGFR > 60 Random Glucose 105 Calcium 9.4 Total Bilirubin 0.9 AST 26 ALT 80 H Alkaline Phosphatase 232 H D Total Protein 7.1 Albumin 3.3 L Lipase 76 Urine Color Ltyellow Urine Appearance Clear Urine pH 8.0 Ur Specific Basin 1.008 Urine Protein Negative Urine Glucose (UA) Negative Urine Ketones Negative Urine Blood Negative Urine Nitrite Negative Urine Bilirubin Negative Urine Urobilinogen Negative Ur Leukocyte Esterase Negative 03/06/18 19:10 RBC 4.22 MCV 89.0 MCHC 34.1 RDW 13.8 MPV 8.7 D Neutrophils % 71.4 Lymphocytes % 17.1 D Monocytes % 8.6 Eosinophils % 1.9 D Basophils % 1.0 D - Medications Given in the ED: ED Medications Discontinued Medications Generic Name Dose Route Start Last Admin Trade Name Freq PRN Reason Stop Dose Admin Sodium Chloride 500 mls @ 500 mls/hr 03/06/18 19:41 03/06/18 20:02 Normal Saline - IV 03/06/18 20:40 500 mls/hr ASDIR STA Administration <Kevin Muir - Last Filed: 03/06/18 22:39> - LABORATORY CBC & Chemistry Diagram: 03/06/18 19:10 03/06/18 19:10 <Chavez Reyes - Last Filed: 03/06/18 22:55> Medical Decision Making - Medical Decision Making 03/06/18 22:[address] Solis's answering service, patient's GI doctor, awaiting call back. 22:39 Second call placed to Dr. Solis's answering service, awaiting call back. <Kevin Muir - Last Filed: 03/06/18 22:39> - Medical Decision Making 03/06/18 22:03 63-year-old female, status post ERCP with sphincterotomy due to retained CBD stone and cholangitis presents to the ER with recurrent epigastric pain for the past several days, crampy in nature, intermittent without associated nausea/ vomiting/diarrhea/melena/bright red blood per rectum. In the ER, patient is asymptomatic, afebrile and well-appearing. Serial abdominal exams reveal minimal epigastric tenderness on deep palpation without guarding or rebound. CBC reveals leukocytosis of 15 with a normal differential. CMP reveals decreasing AST and alkaline phosphatase with a normal bilirubin right upper quadrant ultrasound shows no changes of retained CBD stone at this time and there are no changes from previously obtained ultrasound. Will discuss with GI. Likely discharge. 03/06/18 22:53 GI call twice without call back. Patient wishes to be discharged with follow-up as an outpatient. Patient tolerates by mouth and is currently pain-free. Will discharge with <Chavez Reyes - Last Filed: 03/06/18 22:55> *DC/Admit/Observation/Transfer - Attestations Scribe Attestion: 03/06/18 20:44 Documentation prepared by Kevin Muir, acting as medical logistics specialist for Chavez Reyes MD. <Kevin Muir - Last Filed: 03/06/18 22:39> - Attestations Physician Attestion: 03/06/18 22:03 The documentation was prepared by the scribe under my direct supervision. I have reviewed the documentation which correctly represents the findings, medical decision-making and critical action taken by me. Symptoms likely related to . <Chavez Reyes - Last Filed: 03/06/18 22:55> Diagnosis at time of Disposition: Abdominal pain Qualifiers: Abdominal location: epigastric Qualified Code(s): R10.13 - Epigastric pain - Discharge Dispostion Disposition: HOME Condition at time of disposition: Stable - Referrals Referrals: Mckay Mccabe MD [Primary Care Provider] - Nilo Solis MD [Staff Physician] - - Patient Instructions Printed Discharge Instructions: DI for Abdominal Pain-Adult - Post Discharge Activity
[2018-03-06 19:46] LABS: EOS % 1.9 % (0-4.5); HEMATOCRIT 37.6 % (32.4-45.2); HEMOGLOBIN 12.8 GM/dL (10.7-15.3); LYMPH % 17.1 % (8-40); MCH 30.3 pg (25.7-33.7); MCHC 34.1 g/dl (32.0-36.0); MEAN PLT VOLUME 8.7 fl (7.5-11.1); MONO % 8.6 % (3.8-10.2); NEUT % 71.4 % (42.8-82.8); PLATELET COUNT 414 K/MM3 (134-434); RBC 4.22 M/mm3 (3.60-5.2); RDW 13.8 % (11.6-15.6); WHITE BLOOD COUNT 15.1 K/mm3 (4.0-10.0)
[2018-03-06 20:10] LABS: ALBUMIN 3.3 g/dl (3.4-5.0); ALK PHOS 232 U/L (45-117); ANION GAP 6 (8-16); BILIRUBIN,TOTAL 0.9 mg/dL (0.2-1.0); BLOOD UREA NITROGEN 8 mg/dL (7-18); CALCIUM 9.4 mg/dL (8.5-10.1); CHLORIDE 105 mmol/L (98-107); CO2 30 mmol/L (21-32); CREATININE 0.8 mg/dL (0.55-1.02); GLUCOSE,RANDOM 105 mg/dL (74-106); LIPASE 76 U/L (73-393); POTASSIUM 3.3 mmol/L (3.5-5.1); SGOT/AST 26 U/L (15-37); SGPT/ALT 80 U/L (12-78); SODIUM 141 mmol/L (136-145); TOT PROT 7.1 g/dl (6.4-8.2)
[2018-03-06 20:29] LABS: URINE APPEARANCE CLEAR; URINE BILIRUBIN NEGATIVE (<2.0 mg/dL); URINE COLOR LTYELLOW; URINE GLUCOSE (UA) NEGATIVE (NEGATIVE); URINE KETONE NEGATIVE (NEGATIVE); URINE LEUK ESTERASE NEGATIVE (NEGATIVE); URINE NITRITE NEGATIVE (NEGATIVE); URINE PROTEIN NEGATIVE (NEGATIVE); URINE UROBILINOGEN NEGATIVE mg/dL (0.2-1.0)
== END 2018-03-06 22:59 | disposition home or self-care (01) ==
LOC: JER 18:07
PROC: 3E0337Z Introduction of Electrolytic and Water Balance Substance into Peripheral Vein, Percutaneous Approach (ICD-10-PCS; principal; 2018-03-06)
DX: R10.13 Epigastric pain (principal); Z90.49 Acquired absence of other specified parts of digestive tract; I10 Essential (primary) hypertension; F17.210 Nicotine dependence, cigarettes, uncomplicated
CPT/HCPCS: 36415; 76705-TC; 80053; 81003; 83690; 85025; 87086; 99282-25

== ENCOUNTER 2018-07-03 06:59 | Day surgery (SDC) | payer OTHER ==
[2018-07-02 11:49] VITALS: BMI 34.0
[2018-07-03] MEDS ORDERED: INDOMETHACIN 50 MG RECTAL SUPPOSITORY PR ONE ×2 (08:46→08:55)
[2018-07-03] MEDS ORDERED: VASOPRESSIN 20 UNITS/ML VIAL IV ONE (08:58)
[2018-07-03 09:35] VITALS: TEMP 97.8
[2018-07-03 10:58] VITALS: BP 116/73; PULSE 72
--- NOTE | 2018-07-06 17:37 | PATH ---
Surgical Pathology Report Patient Name: MICHAEL CARLOS [facility]. Rec. #: [id number] /Age/Gender: 1955 (Age: 63) / F Account: [id number] Location: [facility]-ENDOSCOPY Taken: 07/03/2018 Received: 07/03/2018 Reported: 07/06/2018 Physicians: Nilo Solis M.D. Specimen(s) Received OLD STENT FROM BILE DUCT Clinical History Bile duct stricture status post stent Final Diagnosis BILE DUCT, OLD STENT, REMOVAL: CONSISTENT WITH BILIARY STENT. MACROSCOPIC DIAGNOSIS. Electronically Signed Kirsten Reis M.D. Gross Description Received fresh labeled "stent from bile duct," is a 15 cm in length blue, coiled portion of tubing, consistent with a biliary stent. No soft tissue is present. No sections are submitted, gross only. DL/07/03/2018 saudi/07/03/2018
== END 2018-07-03 10:58 | disposition home or self-care (01) ==
LOC: JASU-ENDO 06:59
PROVIDERS: ATTEND Internal Medicine Gastroenterology
PROC: 0FPB8DZ Removal of Intraluminal Device from Hepatobiliary Duct, Via Natural or Artificial Opening Endoscopic (ICD-10-PCS; principal; 2018-07-03 08:00)
DX: K83.1 Obstruction of bile duct (principal)
CPT/HCPCS: 76000-TC-FY; 88300-TC

== ENCOUNTER → 2019-03-18 | Day surgery (SDC) | payer OTHER ==
--- NOTE | 2019-03-19 15:44 | PATH ---
Surgical Pathology Report Patient Name: MICHAEL CARLOS [facility]. Rec. #: [id number] /Age/Gender: 1955 (Age: 64) / F Account: [id number] Location: [facility] Taken: 03/18/2019 Received: 03/18/2019 Reported: 03/19/2019 Physicians: Elton Christopher Specimen(s) Received A: LEFT BREAST SPECIMEN- WITH CALCIFICATIONS B: LEFT BREAST SPECIMEN-WITHOUT CALCIFICATIONS Clinical History Nonpalpable lesion Mammographic findings: Microcalcification, suspicious Final Diagnosis A. BREAST, LEFT, WITH CALCIFICATIONS, STEREOTACTIC BIOPSY: FOCAL ATYPICAL DUCTAL HYPERPLASIA (ADH) ARISING IN A BACKGROUND OF COLUMNAR CELL CHANGE AND MICROCYST FORMATION WITH ASSOCIATED CALCIFICATIONS. B. BREAST, LEFT, WITHOUT CALCIFICATIONS, STEREOTACTIC BIOPSY: BENIGN BREAST TISSUE SHOWING FOCAL USUAL DUCTAL HYPERPLASIA (UDH) WITH ASSOCIATED CALCIFICATIONS. Electronically Signed Justa Suresh M.D. Gross Description A. Received in formalin labeled "left breast with calcifications," are 5 chavis-yellow, cylindrical portions of fibroadipose tissue ranging from 1.9-4.0 cm in length and averaging 0.3 cm in diameter. The specimens are submitted in toto in 2 cassettes. B. Received in formalin labeled "left breast without calcifications," are 4 chavis-yellow, cylindrical portions of fibroadipose tissue ranging from 0.5-3.8 cm in length and averaging 0.3 cm in diameter. The specimens are submitted in toto in one cassette. Time to formalin fixation: 5 minutes Total formalin fixation time: Approximately 8 hours 03/18/201903/18/2019
== END | disposition home or self-care (01) ==
LOC: FMAMMOTONE 08:15
PROVIDERS: ATTEND Obstetrics & Gynecology
PROC: 0HBU3ZX Excision of Left Breast, Percutaneous Approach, Diagnostic (ICD-10-PCS; principal; 2019-03-18)
DX: N60.12 Diffuse cystic mastopathy of left breast (principal); N60.92 Unspecified benign mammary dysplasia of left breast; N64.89 Other specified disorders of breast; R92.1 Mammographic calcification found on diagnostic imaging of breast
CPT/HCPCS: 19081; 87899; 88305-TC; A4648

== ENCOUNTER 2019-04-15 07:14 | Day surgery (SDC) | payer OTHER ==
--- NOTE | 2019-04-09 11:26 | HP ---
Admitting History and Physical - Primary Care Physician PCP: Lukasz Alonso - Admission Chief Complaint: left breast atypia History of Present Illness: 64 year old postmenapausal female with strong family H/O breast cancer who was found to have some architectual distortion and calcifications in left breast upper outer aspect on screening mammogram 02/2019. Stereotactic core biopsy showed ADH 03/18/2019. History Source: Patient Limitations to Obtaining History: No Limitations - Past Medical History Cardiovascular: Yes: HTN, Other (arythmia( tachycardia)) Hepatobiliary: Yes: Cholelithiasis, Choledocholithiasis - Past Surgical History Past Surgical History: Yes: Cholecystectomy (laparoscopic, 3 weekis ago at [facility]) Additional Past Surgical History: left salpingoophorectomy 1998 cyst - Smoking History Smoking history: Current every day smoker Have you smoked in the past 12 months: Yes Aproximately how many cigarettes per day: 15 - Alcohol/Substance Use Hx Alcohol Use: Yes (social) History of Substance Use: reports: None - Social History ADL: Independent 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 [employer] History of Recent Travel: No Home Medications - Allergies Allergies/Adverse Reactions: Allergies Allergy/AdvReac Type Severity Reaction Status Date / Time No Known Allergies Allergy Verified 04/08/19 15:08 - Home Medications Home Medications: Ambulatory Orders Metoprolol Tartrate 25 mg PO DAILY 01/11/18 Olmesartan/Hydrochlorothiazide [Benicar Hct 20-12.5MG Tab -] 1 tab PO DAILY Biotin 1 mg PO DAILY 07/03/18 Cholecalciferol (Vitamin D3) [Vitamin D -] 400 unit PO DAILY 07/03/18 Aspirin [ASA -] 81 mg PO DAILY 04/08/19 Family Disease History - Family Disease History Family Disease History: Other: Father ( 64: [place]), Mother (: 71: ESRD on HD), Brother (2, Healthy), Sister (3, healthy), Son (2, healthy) Physical Examination Constitutional: Yes: Well Nourished Breast(s): Yes: Other (ptotic D sized breast cups no palpable masses or adenopathy bilaterally, post bx changes left breast) Problem List - Problems (1) Atypical ductal hyperplasia of left breast Code(s): N60.92 - UNSPECIFIED BENIGN MAMMARY DYSPLASIA OF LEFT BREAST Assessment/Plan left breast wide excision with mammogram needle localization
[2019-04-15 08:02] VITALS: BMI 37.5
[2019-04-15] MEDS ORDERED: MIDAZOLAM HCL 2 MG/2 ML SINGLE DOSE VIAL ONE (08:14)
[2019-04-15] MEDS ORDERED: KETOROLAC TROMETHAMINE 30 MG/1 ML VIAL ONE (08:21)
[2019-04-15] MEDS ORDERED: ONDANSETRON 4 MG/2 ML VIAL ONE (08:21)
[2019-04-15] MEDS ORDERED: PROPOFOL 20 ML ONE ×2 (08:21→10:35)
[2019-04-15] MEDS ORDERED: LIDOCAINE HCL/PF 2% SDV 5ML VIAL ONE (08:21)
[2019-04-15] MEDS ORDERED: DEXAMETHASONE SOD PHOSPHATE 4 MG/1 ML VIAL ONE (08:21)
[2019-04-15] MEDS ORDERED: SUCCINYLCHOLINE CHLORIDE 200 MG/10 ML SYRINGE ONE (08:23)
[2019-04-15] MEDS ORDERED: SEVOFLURANE 250 ML BTL ONE (08:26)
[2019-04-15] MEDS ORDERED: oxyCODONE HCL 5 MG TABLET PO PRN ×2 (08:33)
[2019-04-15] MEDS ORDERED: ONDANSETRON 4 MG/2 ML VIAL IVPUSH PRN ×2 (08:33→09:56)
[2019-04-15] MEDS ORDERED: LACTATED RINGERS SOLUTION 1,000 ML IV SCH (08:45)
[2019-04-15] MEDS ORDERED: BUPIVACAINE HCL 0.25% 125 MG/50 ML VIAL ONE (08:56)
[2019-04-15] MEDS ORDERED: KETOROLAC TROMETHAMINE 30 MG/1 ML VIAL IVPUSH PRN (09:56)
[2019-04-15] MEDS ORDERED: DEXTROSE 5%-0.45% SALINE 1,000 ML IV SCH (10:00)
[2019-04-15] MEDS ORDERED: ceFAZolin SODIUM 1 GM VIAL ONE (10:15)
[2019-04-15] MEDS ORDERED: SODIUM CHLORIDE 0.9% P/F 10 ML VIAL IJ ONE (10:15)
[2019-04-15] MEDS ORDERED: BUPIVACAINE HCL/PF 2.5 MG/ML - 30 ML VIAL IJ ONE (10:17)
[2019-04-15] MEDS ORDERED: GUM MASTIC/STORAX/MSAL/ALCOHOL 1 DRP DROPSBTL MC ONE (10:18)
[2019-04-15] MEDS ORDERED: BUPIVACAINE HCL/PF 0.25% (2.5MG/ML) 10 ML VIAL IJ ONE (10:42)
[2019-04-15 13:09] VITALS: BP 130/72; PULSE 74; TEMP 97.9
--- NOTE | 2019-04-15 13:39 | OP ---
DATE OF OPERATION: 04/15/2019 PREOPERATIVE DIAGNOSIS: Left breast atypia. POSTOPERATIVE DIAGNOSIS: Left breast atypia. PROCEDURE: Left breast wide excision with mammographic needle localization. ANESTHESIA: Local with IV sedation. PRIMARY SURGEON: Alexy Alonso MD GREASE RACK WORKER: POLY Rubin COMPLICATIONS: There were no complications. INDICATIONS: Briefly, the patient is a 64-year-old postmenopausal white female of [place] descent with a family history with her sister had breast cancer at age 50. The patient was found to have some left breast upper outer quadrant calcifications with architectural distortion on mammography in February 2019 and underwent stereotactic biopsy on March 18, 2019 showing atypical duct hyperplasia. She was advised on undergoing a left breast partial mastectomy with needle localization. DESCRIPTION OF PROCEDURE: She was brought in for the procedure on April 15, 2019 and 1st underwent the needle localization in Radiology and then was brought to the holding area. In the holding area, site verification was made, and informed consent was obtained. She was brought into the operating room and laid on the OR table in a supine position. Venodynes were placed on the lower extremities. She received a gram of Ancef prior to incision. She underwent IV sedation, and the left breast was sterilely prepped and draped in the usual fashion with the wire prepped in the field. Lidocaine 1% was given around the needle localization site, and a curvilinear incision was made just medial to the exit site of the wire from the skin. Dissection was undertaken around the breast tissue, around the needle localization, and the breast tissue was completely removed from around the wire with the wire intact within the middle of the specimen. The specimen was oriented with a long lateral, short superior suture, and specimen radiograph showed removal of the clip in question. Hemostasis was achieved, and the breast tissue was reapproximated using 2-0 plain suture. The skin was closed using interrupted 3-0 deep dermal Vicryl suture and a running 4-0 subcuticular Biosyn suture. Mastisol, Steri-Strips were applied over the wound with compressive dressing placed over this. She was placed in a surgical bra postoperatively. The patient tolerated the procedure well without difficulty. An estimated blood loss was minimal. All sponge and needle counts were correct at the end of the case. The patient was awake and alert at the end of the procedure and will be brought back to the post anesthesia care unit and discharged home the same day once discharge criteria are met. She is to follow up in the office in 1 week for a formal wound pathology check. ALEXY ALONSO M.D. [id number]
--- NOTE | 2019-04-21 16:27 | PATH ---
Surgical Pathology Report Patient Name: MICHAEL CARLOS [facility]. Rec. #: [id number] /Age/Gender: 1955 (Age: 64) / F Account: [id number] [facility] Taken: 04/15/2019 Received: 04/16/2019 Reported: 04/21/2019 Physicians: Lukasz Alonso M.D. Specimen(s) Received LEFT BREAST WIDE EXCISION Clinical History L breast atypia Final Diagnosis Breast, left, wide excision: Focal atypical ductal hyperplasia (ADH), columnar cell change and microcysts with associated calcifications. Prior biopsy site changes are present. Electronically Signed Justa Suresh M.D. Gross Description Received in formalin, labeled "left breast wide excision" is an 8.5 x 6.5 x 1.5 cm portion of fibrofatty tissue with a localizing needle in place. A long suture vogt the lateral margin and a short suture indicates the superior margin, per the surgeon. The specimen is inked as follows: superior- blue, inferior- green, medial - orange, deep - black, lateral and anterior- red. Sectioning reveals a centrally hemorrhagic focus, consistent with prior biopsy site, surrounded by fibrous to firm tissue abutting the deep margin. No definitive mass is identified. Lead Network Engineer sections are submitted in nine cassettes (with the fibrous/firm tissue along with prior biopsy site entirely submitted)) 1-3-prior biopsy site with anterior and deep margins; 4-fibrous/ firm tissue surrounding prior biopsy site with anterior, deep and superior margins; 5, 6-superior margin; 7-inferior margin; 8-medial margin; 9-lateral margin. Time to formalin fixation: 2 minutes Total formalin fixation time: Approximately 33 hours AE/04/20/2019 ebram/04/20/2019
== END 2019-04-15 13:08 | disposition home or self-care (01) ==
LOC: FASU 07:14
PROVIDERS: ATTEND Surgery Surgical Oncology
PROC: 0HBU0ZX Excision of Left Breast, Open Approach, Diagnostic (ICD-10-PCS; principal; 2019-04-15 10:15)
DX: N60.92 Unspecified benign mammary dysplasia of left breast (principal); Z80.3 Family history of malignant neoplasm of breast; I10 Essential (primary) hypertension; F17.210 Nicotine dependence, cigarettes, uncomplicated
CPT/HCPCS: 19281; 88307-TC; 94760

== ENCOUNTER 2022-04-11 12:39 | Emergency (ER) | payer OTHER ==
[2022-04-11] MEDS ORDERED: MECLIZINE HCL 25 MG TABLET (FP) PO ONE (13:20)
[2022-04-11] MEDS ORDERED: ACETAMINOPHEN 1000 MG/100 ML BAG IVPB ONE (13:20)
[2022-04-11 13:31] VITALS: BMI 42.5
[2022-04-11] MEDS ORDERED: SODIUM CHLORIDE 0.9% 500 ML INFUS.BAG IV ONE (13:31)
[2022-04-11] MEDS ORDERED: METOCLOPRAMIDE HCL INJECTION 10 MG/2 ML VIAL IVPB ONE (13:31)
[2022-04-11] MEDS ORDERED: ALBUTEROL SO4 HFA INHALER IH ONE ×2 (13:32→14:12)
[2022-04-11] MEDS ORDERED: METOCLOPRAMIDE HCL INJECTION 10 MG/2 ML VIAL ONE (14:12)
[2022-04-11] MEDS ORDERED: MECLIZINE HCL 25 MG TABLET (FP) ONE (14:12)
[2022-04-11] MEDS ORDERED: ACETAMINOPHEN INJECTION 100 ML IVPB ONE (14:12)
[2022-04-11 15:08] LABS: BASO % 0.9 % (0-2.0); EOS % 0.4 % (0-4.5); HEMATOCRIT 40.3 % (32.4-45.2); HEMOGLOBIN 13.6 GM/dL (10.7-15.3); LYMPH % 5.5 % (8-40); MCH 30.3 pg (25.7-33.7); MCHC 33.8 g/dl (32.0-36.0); MEAN CELL VOLUME 89.6 fl (80-96); MEAN PLT VOLUME 9.6 fl (7.5-11.1); MONO % 17.3 % (3.8-10.2); NEUT % 75.9 % (42.8-82.8); PLATELET COUNT 295 10^3/uL (134-434); RDW 12.5 % (11.6-15.6); WHITE BLOOD COUNT 8.7 K/mm3 (4.0-10.0)
[2022-04-11 15:15] LABS: INR 1.06 (0.83-1.09); PROTHROMBIN TIME (PATIENT) 12.2 SEC (9.7-13.0)
[2022-04-11 15:18] LABS: ACTIVATED PTT 31.9 SECONDS (25.2-36.5)
[2022-04-11 15:42] LABS: CALCIUM 9.8 mg/dL (8.5-10.1)
[2022-04-11 15:43] LABS: ALBUMIN 3.9 g/dl (3.4-5.0); MAGNESIUM 1.6 mg/dL (1.8-2.4)
[2022-04-11 15:46] LABS: CREATININE 0.9 mg/dL (0.55-1.3)
[2022-04-11 15:48] LABS: BILIRUBIN,TOTAL 0.5 mg/dL (0.2-1); TOT PROT 7.6 g/dl (6.4-8.2)
[2022-04-11 15:51] LABS: N-TERMINAL BNP 274.8 pg/ml (5-125)
[2022-04-11] MEDS ORDERED: MAGNESIUM SULF 50% (8.12 MEQ/2 ML-1 GM VIAL) IVPB ONE (16:24)
[2022-04-11] MEDS ORDERED: DEXAMETHASONE SOD PHOSPHATE 10 MG/1 ML VIAL ONE (16:27)
[2022-04-11] MEDS ORDERED: DEXAMETHASONE SOD PHOSPHATE 20 MG/5 ML VIAL IVPB ONE (16:38)
[2022-04-11] MEDS ORDERED: DEXAMETHASONE SOD PHOSPHATE 4 MG/1 ML VIAL IVPUSH ONE (16:49)
[2022-04-11 17:49] VITALS: BP 126/52; PULSE 83; RESP 20; TEMP 99.2
[2022-04-11] MEDS ORDERED: MAGNESIUM SULFATE IN WATER 2 GM/50 ML IVPB IVPB ONE (17:54)
== END 2022-04-11 21:31 | disposition left against medical advice (07) ==
LOC: JER 12:39
PROC: 3E0333Z Introduction of Anti-inflammatory into Peripheral Vein, Percutaneous Approach (ICD-10-PCS; principal; 2022-04-11)
PROC: 3E033GC Introduction of Other Therapeutic Substance into Peripheral Vein, Percutaneous Approach (ICD-10-PCS; 2022-04-11)
PROC: 3E033GC Introduction of Other Therapeutic Substance into Peripheral Vein, Percutaneous Approach (ICD-10-PCS; 2022-04-11)
DX: R06.02 Shortness of breath (principal); R09.02 Hypoxemia
CPT/HCPCS: 0241U-QW; 36415; 70450-TC; 71045-TC-FY; 71275-TC; 80053; 83735; 83880; 84484; 85025; 85610; 85730; 87040; 93005; 93010; 99285-25